=== PATIENT | male | born 2000 | race African-American/Black ===

== ENCOUNTER 2022-02-13 02:04 | Emergency (ER) | payer OTHER ==
[2022-02-13] MEDS ORDERED: Boostrix 0.5 ML (Tdap) VIAL (>/=7 yrs of age) ONE (04:57)
== END 2022-02-13 05:55 | disposition home or self-care (01) ==
LOC: ERS 02:04
DX: S01.01XA Laceration without foreign body of scalp, initial encounter (principal); F17.220 Nicotine dependence, chewing tobacco, uncomplicated; W01.198A Fall on same level from slipping, tripping and stumbling with subsequent striking against other object, initial encounter; Z23 Encounter for immunization
CPT/HCPCS: 12002; 70450; 90471; 90715